=== PATIENT | male | born 1985 | race Two or more races ===

== ENCOUNTER 2025-02-28 21:11 | Emergency (ER) | payer BC, OTHER, SELFPAY ==
[2025-02-28 21:13] VITALS: BMI 36.0
[2025-02-28 21:58] VITALS: BP 139/89; PULSE 90; RESP 18; TEMP 37.1; O2SAT 98
--- NOTE | 2025-02-28 22:51 | PD.EDRME ---
Rapid Medical Screening Exam RME Arrival date/time: 02/28/25 21:11 This is a case of 39-year-old male who came into the emergency room due to right inguinal pain and swelling secondary to inguinal hernia worsening of the symptoms this patient decided to start consult here in the emergency room patient is also having abdominal pain Chief Complaint: Abdominal Pain Vital signs: Vital Signs Temperature 98.7 F 02/28/25 21:58 Pulse Rate 90 02/28/25 21:58 Respiratory Rate 18 02/28/25 21:58 Blood Pressure 139/89 H 02/28/25 21:58 Pulse Oximetry (%) 98 02/28/25 21:58
[2025-02-28] MEDS: HYDROcodone/APAP 5/325 TABLET 1 TAB PO (23:19)
--- NOTE | 2025-03-01 00:01 | EDNOTE_ITS ---
ED Abdominal Pain RME/HPI General Chief Complaint: Abdominal Pain Stated complaint: PAIN R INGUENAL AREA Time seen by provider: 02/28/25 23:12 Arrival date/time: 02/28/25 21:11 RME / HPI RME / HPI narrative: 02/28/25 21:11 This is a case of 39-year-old male who came into the emergency room due to right inguinal pain and swelling secondary to inguinal hernia worsening of the symptoms this patient decided to start consult here in the emergency room patient is also having abdominal pain ------ This section includes all my notes and documentations, including HPI, PE, and ED course. Carlos Isaac MD HPI: 39yo male presents to the ED for complaints of right groin mass and pain for the last few months, but has not been evaluated for it. He is able to urinate. Abdominal PSH includes cholecystectomy. No other complaints reported. ROS: All negative except as documented in HPI. Physical Exam: General: Alert and oriented. No acute distress when remaining still. Eyes: Conjunctivae and lids clear. ENT: No nasal congestion. Neck: Supple. Lungs: No respiratory distress. : Right inguinal hernia noted (size of baseball). No evidence of incarceration. Skin: Warm and dry. Neuro: Alert and oriented X 3. I reviewed all diagnostic test results. My review of the scrotal/testicular US report is right inguinal hernia. My review of the CT abdomen pelvis report is right inguinal hernia, not incarcerated. UA unremarkable. At this point, diagnoses include right inguinal hernia, not incarcerated. Recommended outpatient surgery care. Based on my best medical judgment, made decision no further evaluation or treatment indicated at this time. Patient understands and agrees to the discharge instructions customized and printed, see below. Discharge Instructions from Dr. Isaac printed for you: 1. After evaluation, you have large inguinal hernia. 2. Fat and intestines came out of the right inguinal canal into your testicular sac. 3. If the intestines get twisted, this can cut off the blood supply and the intestines can . Fortunately, this is not the case so you don't need emergent surgery. 4. Tylenol with codeine for severe pain. 5. See Dr. Shore (our surgeon) on 03/02/25 for recheck and further care. Ask to review all official radiology reports, to make sure you receive all necessary follow-ups and monitoring. Discuss elective surgery before emergency in the future. 6. Seek immediate medical care with severe and persistent pain, persistent vomiting, fever, or with any concerns. Carlos Isaac MD Related Data Previous Rx's ?Medication ?Instructions ?Recorded ciprofloxacin HCl 500 mg tablet 500 mg PO Q12H #20 tab s 03/15/20 (Cipro) hydrocodone 10 mg-acetaminophen 1 tab PO Q6H PRN pain #20 tabs 03/15/20 325 mg tablet ([place]) acetaminophen 300 mg-codeine 30 mg 2 tab PO Q8H PRN pa in #20 tabs 03/01/25 tablet Allergies Allergy/AdvReac Type Severity Reaction Status Date / Time No Known Allergies Allergy Verified 02/28/25 21:19 Review of Systems Review of Systems Systems Reviewed: All systems reviewed, normal except as documented Past Medical History Past Medical History NEUROLOGIC: Negative Neurological Disorders or Seizures CARDIAC: Negative Cardiac Disorders or Congestive Heart Failure RESPIRATORY: Negative Chronic Obstructive Pulmonary Disease (COPD) or Asthma GASTROINTESTINAL: Negative Gastrointestinal Disorders GENITOURINARY: Negative Genitourinary Disorders or Renal Disease MUSCULOSKELETAL: Negative Musculoskeletal Disorders ENDOCRINE: Negative Endocrine Disorders, Diabetes Mellitus Type 1 or Diabetes M ellitus Type 2 HEMATOLOGIC: Negative Blood Disorders or Sickle Cell Disease OTHER HISTORY: Negative Blood Transfusions, Blood Transfusion Reaction or Anesthesia Reactions Social History SMOKING STATUS: Never smoker SUBSTANCE USE: does not use ED Exam Narrative Physical exam: As noted in HPI. Course Quality Measures none Orders Category Date Time Status CT abdomen pelvis wo con Stat Exams 03/01/25 00:08 Taken US testicular Stat Exams 03/01/25 00:08 Taken Drug Screen,Urine Stat Lab 03/01/25 01:09 Completed UA, C/S IF [Urinalysis, C/S if Indicated] Stat Lab 03/01/25 01:09 Completed HYDROcodone*/APAP 5/325 [[place] 5/325] Med 02/28/25 22:51 Discontinued 1 tab PO X1 ONE Vital Signs Vital signs: Vital Signs Temperature 98.7 F 02/28/25 21:58 Pulse Rate 90 02/28/25 21:58 Respiratory Rate 18 02/28/25 21:58 Blood Pressure 139/89 H 02/28/25 21:58 Pulse Oximetry (%) 98 02/28/25 21:58 Abdominal Pain MDM MDM Narrative MDM Narrative:: 39yo male presents to the ED for complaints of right groin mass and pain for the last few months, but has not been evaluated for it. He is able to urinate. Abdominal PSH includes cholecystectomy. No other complaints reported. Patient data External records reviewed:: [facility] previous records (Per chart review, patient was admitted here on 03/13/20 for acalculous cholecystitis.) Clinical information provided by:: patient Social determinants that could affect healthcare access:: none Patient has the following chronic illnesses:: none How is presenting disease/condition affected by chronic disease/condition?: no chronic disease Evaluation data The following diagnostics were reviewed and interpreted by me:: lab results and radiology exam(s) Lab and/or radiology exams considered but not ordered:: none Interpretation Summary: I reviewed all diagnostic test results. My review of the scrotal/testicular US report is right inguinal hernia. My review of the CT abdomen pelvis report is right inguinal hernia, not incarcerated. UA unremarkable. Medications / Prescriptions Medications or Prescriptions considered but not ordered:: none Medication administrations:: Medication Administration History Discontinued Medications Hydrocodone Bitart/Acetaminophen (Hydrocodone/Apap 5/325 Tablet) 1 tab PO X1 ONE Stop: 02/28/25 22:52 Last Admin: 02/28/25 23:19 Dose: 1 tab Documented By: ANKIT Ragland Consultations Consultation(s) initiated? (list below): No Diagnosis Differential diagnosis abdominal pain: acute appendicitis, calculus of kidney, constipation, small bowel obstruction and other (And because her hernia) Most likely diagnosis given after review of the tests above:: Right inguinal hernia, not incarcerated. Admission Indicated Admission indicated?: not indicated Explain why admission is indicated or not indicated:: With no condition needing emergent intervention, there was no indication for admission. Admission Request Was there a request for admission?: No Disposition Plan Disposition Plan: Discharge Discharge Attestation Discharge Attestation: The patient and all family members were given an opportunity to ask questions and understood the discharge instructions. Discharge instructions specifically effects, indications for sooner follow up or return to the emergency department, and the expected course of current diagnosis. Patient condition: Stable Discharge Plan Plan Patient Disposition: HOME (Self Care) Prescriptions/Referrals Prescriptions/Med Rec: New acetaminophen-codeine 300-30 mg tablet 2 tab PO Q8H MDD 6 PRN (Reason: pain) Qty: 20 0RF No Action ciprofloxacin HCl [Cipro] 500 mg tablet 500 mg PO Q12H Qty: 20 0RF Rx Instructions: administer dose at least 2 hrs before/6 hrs after dairy products, calcium, zinc, and/or iron-containing products hydrocodone-acetaminophen [[place]] 10-325 mg tablet 1 tab PO Q6H MDD 3 PRN (Reason: pain) Qty: 20 0RF Referrals: No Primary/Family,Physician [Primary Care Provider] - In 1 week Problem List Clinical Impression: Right inguinal hernia Patient/Caregiver Discharge Instructions Discharge Activity: activity as tolerated Education Materials: ED Hernia (Adult) Additional Instructions: Discharge Instructions from Dr. Isaac printed for you: 1. After evaluation, you have large inguinal hernia. 2. Fat and intestines came out of the right inguinal canal into your testicular sac. 3. If the intestines get twisted, this can cut off the blood supply and the intestines can . Fortunately, this is not the case so you don't need emergent surgery. 4. Tylenol with codeine for severe pain. 5. See Dr. Shore (our surgeon) on 03/02/25 for recheck and further care. Ask to review all official radiology reports, to make sure you receive all necessary follow-ups and monitoring. Discuss elective surgery before emergency in the future. 6. Seek immediate medical care with severe and persistent pain, persistent vomiting, fever, or with any concerns. Print Language: [place] Stand Alone Forms: Sandy Award Info., Patient Portal Info Letter
--- NOTE | 2025-03-01 00:08 | XR_ITS ---
Examination: Testicular sonography complete TECHNIQUE: Rocha scale sonographic images testes, assessment arterial inflow venous outflow Doppler spectrum analysis code 4 analysis Date and time: March 01, 2025, 0020 hours INDICATIONS: Onset right-sided testicular pain beginning 3 days ago. FINDINGS: Right testis 3.4 cm epididymis 12 mm Minimal varicocele No testicular mass Arterial flow to the testicle Masslike area above the right testicle, 7.2 x 3.2 x 5.9 cm with vascularity Left testis is 3.9 cm epididymis 0.9 cm Arterial flow to the testicle. No testicular Mass. Mild varicocele IMPRESSION: No testicular torsion or testicular mass Masslike area above the right testicle 7.2 x 3.2 x 5.9 cm with vascularity, recommend repeat testicular sonogram in the a.m. with radiologist in attendance
--- NOTE | 2025-03-01 00:08 | XR_ITS ---
Examination: CT abdomen and pelvis without contrast. Coronal 3-D reconstructions. Sagittal 2-D reconstructions. Date and time of exam:March 01, 2025 at 0148 hours Comparison March 13, 2020 INDICATIONS: Right inguinal pain 3 weeks CTDI: vol (mGy): 11.7 DLP: (mGycm): 797 Technique: Axial images of the abdomen have been obtained, 3 mm slice thickness Intravenous contrast material has not been administered. Low dose protocols were performed. One or more of the following dose reduction techniques were used; automated exposure control, adjustment of the mA and/or KV according to patient size, use of iterative reconstruction technique. Findings: No focal liver or splenic lesions Absent gallbladder No pancreatic mass No renal or ureteral calculi, no hydronephrosis Normal appendix No diverticulitis Fat-containing left inguinal hernia Large right inguinal hernia containing small bowel loops but no definite incarcerated bowel, small bowel loops are mildly distended No bladder mass IMPRESSION: Large right inguinal hernia containing small bowel, without definite incarceration Mildly dilated small bowel loops
[2025-03-01 01:27] LABS: Collection Type, Urine Clean Catch; Squamous Epithelial Cell,Urine 0 /hpf (0-5)
[2025-03-01 01:33] LABS: Bilirubin,Urine Negative (Negative); Blood,Urine Negative (Negative); Clarity,Urine Clear (Clear/Hazy); Color,Urine Lt-Yellow (Lt Yel-Yel); Culture Indicated,Urine Not Indicated; Glucose, Urine Negative (Negative); Ketones,Urine Negative (Negative); Leukocyte Esterase,Urine Negative (Negative); Nitrite,Urine Negative (Negative); PH,Urine 6.0 (5.0-7.0); Protein,Urine Negative (Neg - Trace); RBC,Urine 2 /hpf (0-3); Specific Gravity,Urine 1.016 (1.001-1.035); Urobilinogen,Urine Negative mg/dL (0.0-1.0); WBC,Urine < 1 /hpf (0-5)
[2025-03-01 01:39] LABS: Amphetamine/Methamp Scrn,U Negative (Negative); Barbiturate Screen,Urine Negative (Negative); Benzodiazepines Screen,Urine Negative (Negative); Benzoylecgonine Screen, Ur Negative (Negative); Fentanyl Screen,Urine Negative (Negative); Opiate Screen,Urine Negative (Negative); THC Screen,Urine Negative (Negative)
--- NOTE | 2025-03-01 02:16 | PRELIM_ITS ---
Ultrasound of the scrotum. March 01, 2025 at 0020 hours Clinical history: Edema, erythema, calor tenderness. Technique: Real-time ultrasound was performed using Duplex scanning including arterial inflow, venous outflow, color and spectral Doppler analysis of both testes. Findings: Right: The right testicle measures 3.4 x 2.2 x 4.3 cm and demonstrates normal echogenicity and Doppler flow signal. There is large inguinoscrotal hernia containing bowel and omentum, measuring 7.2 x 3.2 x 5.9 cm. The right epididymis measures 1 x 0.9 x 1.1 cm. There are dilated pampiniform plexus of v eins, the maximum caliber measures 2.5 mm. There is no hydrocele. Left: The left testicle measures 3.9 x 2.1 x 3.2 cm and demonstrates normal echogenicity and Doppler flow signal. The left epididymis measures 0.6 x 0.6 x 0.9 cm. There is no hydrocele. There are dilated pampiniform plexus of veins, the maximum caliber measures 3.7 mm. There is mild scrotal wall edema measuring 3mm. Impression: 1. No evidence of testicular torsion or epididymitis. 2. Bilateral varicoceles as described. Recommend clinical correlation. 3. Large right inguinoscrotal hernia as described. Recommend clinical correlation. 4. Other findings as described above. Report Electronically Signed By: Shai Patel 03/01/2025 2:16:13 AM [EST]
--- NOTE | 2025-03-01 02:45 | PRELIM_ITS ---
CT scan of the abdomen and pelvis without intravenous contrast (axial sections with sagittal and coronal reformats) March 01, 2025 0148 hours Clinical History: Enlarged scrotum. Comparison: Correlated with the prior ultrasound study dated March 01, 2025. Findings: Subpleural scarring is noted in the right middle lobe. The gallbladder is surgically absent. The liver, pancreas, spleen, kidneys and adrenals are unremarkable on this noncontrast study. No evidence of bowel obstruction. A moderate amount of fecal material is present in the colon. The appendix is within normal limits (axial image [id number]). There is no mesenteric or retroperitoneal adenopathy. Fluid filled small bowel loops are noted, nonspecific. The urinary bladder is distended and demonstrates mild wall thickening. There is no free fluid or free air. There is large right inguinoscrotal hernia containing fat and nondilated small bowel loops. Degenerative changes are identified in the spine. The evaluation is limited due to the absence of intravenous contrast. Impression: Limited evaluation as described. 1. Large right inguinoscrotal hernia as described. Recommend follow-up. 2. No evidence of bowel obstruction, free air or fluid collection on this noncontrast study. 3. Mild wall thickening of urinary bladder, cystitis cannot be excluded. Recommend clinical and laboratory correlation. 4. Other findings as described above. Report Electronically Signed By: Shai Patel 03/01/2025 2:44:27 AM [EST]
== END 2025-03-01 03:15 | disposition home or self-care (01) ==
PROVIDERS: Emergency Provider Emergency Medicine
DX: K40.90 Unilateral inguinal hernia, without obstruction or gangrene, not specified as recurrent (principal); I86.1 Scrotal varices
CPT/HCPCS: 74176; 76870; 80307; 81001; 99284; A9270

== ENCOUNTER 2025-03-07 09:20 | Day surgery (SDC) | payer BC, OTHER, SELFPAY ==
[2025-03-04 10:19] VITALS: BMI 38.2
[2025-03-04 11:14] LABS: Basophils # (Auto) 0.0 Thou/mm3 (0.0-0.2); Basophils % (Auto) 0 % (0-2.5); Eosinophils # (Auto) 0.2 Thou/mm3 (0.0-0.5); Eosinophils % (Auto) 2 % (0-10); Hematocrit 44.6 % (41.0-53.0); Hemoglobin 15.7 g/dL (13.5-16.0); Immature Granulocytes Auto 0.03 Thou/mm3 (0.00-0.00); Lymphocytes # (Auto) 3.3 Thou/mm3 (1.0-4.8); Lymphocytes % (Auto) 38 % (10-50); Mean Corpuscular HGB Conc 35.2 g/dl (31.0-37.0); Mean Corpuscular Hemoglobin 29.8 pg (25.0-35.0); Mean Corpuscular Volume 85 fL (80-100); Monocytes # (Auto) 0.7 Thou/mm3 (0.0-0.8); Monocytes % (Auto) 8 % (0-12); Neutrophils # (Auto) 4.5 Thou/mm3 (1.8-7.7); Neutrophils % (Auto) 51 % (37-80); Nucleated Red Blood Cell # 0.00 Thou/mm3 (0.00-0.00); Nucleated Red Blood Cell % 0 /100 WBC (0); Platelet Count 208 Thou/mm3 (140-440); RDW Standard Deviation 40.6 fL (35.1-43.9); Red Blood Count 5.27 Miln/mm3 (4.50-5.90); White Blood Count 8.8 Thou/mm3 (3.8-10.6)
[2025-03-04 11:23] LABS: Alanine Aminotransferase 72 U/L (10-49); Albumin, Serum 4.2 gm/dL (3.5-5.0); Albumin/Globulin Ratio 1.7 (1.2-2.2); Alkaline Phosphatase 78 U/L (46-116); Anion Gap 8 (7-16); Aspartate Amino Transferase 36 U/L (0-34); BUN/Creatinine Ratio 11 Ratio (12-20); Bilirubin,Total 0.7 mg/dL (0.3-1.2); Blood Urea Nitrogen 9 mg/dL (9-23); Calcium 9.2 mg/dL (8.3-10.6); Calcium (Corrected) 9.2 mg/dL (8.5-10.1); Carbon Dioxide 29.6 mMol/L (20.0-31.0); Chloride 105 mMol/L (98-107); Creatinine (Component) 0.8 mg/dL (0.6-1.3); Estimated Creatinine Clearance 144.4 mL/min (>60); Globulin 2.5 gm/dL (2.3-3.5); Glucose 108 mg/dL (74-106); Osmolality,Calculated 284 (275-295); Potassium 4.5 mMol/L (3.4-5.1); Sodium 143 mMol/L (136-145); Total Protein 6.7 gm/dL (5.7-8.2); eGFR > 60 See Note
[2025-03-04 11:25] LABS: INR 1.0 (0.9-1.3); Partial Thromboplastin Time 25.3 Seconds (22.0-36.0); Prothrombin Time 10.8 Seconds (9.0-12.2)
[2025-03-07] VITALS (9 sets, daily range): BP systolic 117–154; BP diastolic 80–101; PULSE 91–111; RESP 18–21; TEMP 36.3–36.8; O2SAT 95–97; BMI 37.3
[2025-03-07] MEDS: RINGERS LACTATED 1000 ML 1,000 ML 20 ML IV (10:05)
--- NOTE | 2025-03-07 10:49 | SUR.PREOP ---
Patient expressed gratitude for prayer before their procedure.
--- NOTE | 2025-03-07 15:01 | ESOP_ITS ---
Date of Procedure 03/07/25 Pre Op Diagnosis Strangulated large inguinoscrotal hernia Post Op Diagnosis Same with both direct and indirect component Procedure Repair of the right indirect and direct inguinal hernia with high ligation of the sac and reconstruction of the floor using 3 x 6 Marlex mesh Findings Patient was found to have large amounts of bowel in the right scrotum by large indirect sac which is going all the way down to the scrotum. I had considerable difficulty the sac from the cord structures and it was ligated to the internal ring. Procedure Description The patient was brought to the operating room endotracheal anesthesia given. Patient had a Calderon catheter inserted to empty the bladder in case it was at tached to the soft large sac. Then the external genitalia and lower abdomen was prepped with ChloraPrep solution and draped in a sterile manner. Timeout was performed. Then he is made a standard incision of the right groin for about 8 cm after injecting half percent Marcaine plain. Incision was carried down to the external oblique after dissecting the Onel's fascia. Self-retaining retractor was used and the external ring was incised along with the incision over the external oblique. At this stage I reduced the hernia by pressing on the scrotum so that I can get around the sac. The sac was so big and adherent to the cord structures it was difficult to encircle. When it was done I opened up the sac and found out the patient had a huge sac which has been reduced. Then there were additional lipoma of the cord coming through the internal ring which was fairly large which was clamped and tied with 0 chromic sutures. Then I found the sac was fairly large and it was closed using Endocutter 45 with blue wilfredo. It was allowed to retract. Floor of the inguinal canal was found to be very weak because of the presence of a large indirect inguinal hernia. I could not find any structures to repair the hernia. At this time I decided to use reconstruction of the floor using 3 x 6 inch Marlex mesh. This was trimmed and then I attached it medially to the pubic tubercle and superiorly to the conjoined tendon. Inferiorly it was attached to the shelving edge and when the internal ring was up reached opening was made in the mesh and the cord structures were allowed into this opening. Then there were encircled lateral to the cord structures and I placed 1 stitch of 2-0 Prolene laterally. I used a 2- 0 Prolene for attaching the mesh to the structures mentioned above. Then I approximated inguinal ligament keeping the cord in the subcutaneous tissue. This was accomplished using a 2-0 Vicryl. Onel's fascia was closed with 3-0 plain and injected more local anesthesia and the skin was closed with 4-0 Monocryl subcuticular stitch. Dressing was applied with Adaptic and 4 x 4 gauze and patient tolerated the procedure well. Anesthesia GETA Implants 3 x 6 Marlex mesh to create the floor of the inguinal canal Pathology / specimen None IVF Infused 800 Estimated Blood Loss 50 Condition Stable Disposition PACU Surgeon Claudia Shore MD Surgical Staff Operation Date: 03/07/25 12:15 Case Staff Anesthesiologist: Jorge Mauro RN First Assistant: Gareth Rome
--- NOTE | 2025-03-07 15:08 | SUR.PHASEI ---
1508: Pt. arrived with oral airway in place, vitals stable, breathing unlabored, no signs of distress, dressing to lower right ABD CDI, no active bleed noted, report received from MD Mauro and Delroy RN.
[2025-03-07] MEDS: HYDROmorphone INJ 2 MG/ML VIAL 0.4 MG IVP ×4 (15:23→15:56)
[2025-03-07] MEDS: fentaNYL CIT INJ 50 mCg/ML AMP 2ML 25 MCG IVP ×2 (15:47→16:23)
--- NOTE | 2025-03-07 16:30 | SUR.PHASEII ---
1630: Pt. AAOx4, vitals stable, breathing unlabored, no complaint of pain or nausea, dressing to lower right ABD CDI, no active bleed noted, pt. tolerated sips of water well, pt. ambulated to wheelchair with steady gait and no assist, no complications. Gave discharge instructions to the pt. and her ride, both verbalized understanding and had no further questions. Pt. left with all personal belongings.
== END 2025-03-07 16:30 | disposition home or self-care (01) ==
PROVIDERS: Referring Provider Surgery; Visit Provider Surgery
PROC: (CPT 49650; principal; 2025-03-07 12:00)
DX: K40.90 Unilateral inguinal hernia, without obstruction or gangrene, not specified as recurrent (principal)
CPT/HCPCS: 49650; 36415; 80053; 85025; 85610; 85730; A4217; A4649; C1781; J1171; J2250; J2704; J3010; J7120